=== PATIENT | male | born 1940 | race Caucasian/White ===

== ENCOUNTER → 2017-02-03 | Outpatient (CLI) | payer MEDICARE ==
[~2017-02-03] MED LIST: ACET325T96 PO; ALPR0.25 PO; ASPI81TA28 PO; BISA10SU5 PR; CARB25TA12 PO; CYAN100T PO; DOCU5LIQ PO; DONE1TAB11 PO; FOLI1TAB7 PO; HEPA1INJ22 SC; LISI-461 PO; MAGNSUS PO; MULTTAB86 PO; PRAV40TA2 PO; PROP20TA67 PO; QUET1TAB7 PO; SENN-91 PO; SODIENE PR; TAMS0.4C38 PO; THIA1TAB PO
== END | disposition home or self-care (01) ==
LOC: C.PATHSPEC 16:58
PROVIDERS: ATTEND Urology
DX: R31.9 Hematuria, unspecified (principal)